=== PATIENT | male | born 1965 | race Caucasian/White ===

== ENCOUNTER → 2019-11-14 | Outpatient (CLI) | payer OTHER ==
--- NOTE | 2019-11-15 08:23 | RAD ---
Examination: KNEE BILAT 2V History: Pain Comparison/Correlation: None Findings: 2 view exam of the right knee and two-view exam left knee were obtained. Right knee Spurring about the lateral compartment is present. Spurring about the patellofemoral compartment is present. Small knee joint effusion is present. No fracture or bone destruction. Mild degenerative change of the proximal right tibiofibular joint. Left knee Total left knee joint arthroplasty is present. No loosening. No fracture or bone destruction. Small knee joint effusion suggested. Degenerative changes of the proximal tibiofibular joint noted with remodeling and spurring. Impression: Small knee joint effusions. No acute process. Electronically signed by: Tony Nava MD (11/15/2019 8:20 AM) [facility]
--- NOTE | 2019-11-15 08:25 | RAD ---
Examination: LUMBAR SPINE 2-3V History: Low back pain Comparison/Correlation: None Findings: Frontal and lateral views of the lumbar spine were obtained. Infusion port is present at the left lower quadrant region bilateral hip joint prostheses are partially visualized. Severe disc space narrowing from L2 to L5 is present with endplate sclerosis and spurring. Minimal retrolisthesis of L2 in relation to L3 and L4 transitional L5 is present. Minimal anterolisthesis of L5/S1. Advanced facet joint degenerative sclerotic changes. No fracture or bone destruction. 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 No acute process. Electronically signed by: Tony Naav MD (11/15/2019 8:22 AM) [facility]
== END | disposition home or self-care (01) ==
LOC: RAD 10:09
PROVIDERS: ATTEND Surgery
DX: M17.11 Unilateral primary osteoarthritis, right knee (principal); M25.461 Effusion, right knee; M25.462 Effusion, left knee; M76.891 Other specified enthesopathies of right lower limb, excluding foot; M47.816 Spondylosis without myelopathy or radiculopathy, lumbar region; M48.061 Spinal stenosis, lumbar region without neurogenic claudication; M43.17 Spondylolisthesis, lumbosacral region; Z96.652 Presence of left artificial knee joint
CPT/HCPCS: 72100; 73560